=== PATIENT | male | born 1965 | race American Indian/Alaskan Native ===

== ENCOUNTER 2017-07-06 16:27 | Emergency (ER) | payer OTHER ==
[2017-07-06 17:19] LABS: Basophils % (Auto) 0.8 % (0.0-1.8); Eosinophils % (Auto) 0.5 % (0.0-4.3); Hematocrit 43.1 % (35.5-45.6); Hemoglobin 14.7 gm/dl (11.8-15.2); Mean Corpuscular HGB Conc 34 % (32-34); Mean Corpuscular Hemoglobin 32 pg (28-32); Mean Corpuscular Volume 92 fl (84-94); Platelet Count 215 K/mm3 (140-440); Red Blood Count 4.68 M/mm3 (3.65-5.03); Red Cell Distribution Width 14.8 % (13.2-15.2); White Blood Count 7.7 K/mm3 (4.5-11.0)
[2017-07-06 17:38] LABS: Anion Gap 22 mmol/L; BUN/Creatinine Ratio 8; Blood Urea Nitrogen 8 mg/dL (9-20); Calcium 9.1 mg/dL (8.4-10.2); Carbon Dioxide 23 mmol/L (22-30); Chloride 97.3 mmol/L (98-107); Glucose 106 mg/dL (75-100); Potassium 4.1 mmol/L (3.6-5.0); Sodium 138 mmol/L (137-145)
[2017-07-06 18:58] LABS: Urine Drugs of Abuse Note Disclamer
[2017-07-06 19:16] LABS: Bilirubin,Urine NEG (Negative); Blood,Urine NEG (Negative); Ketones,Urine NEG (Negative); Leukocyte Esterase,Urine NEG (Negative); Mucus,Urine FEW /HPF; Nitrite,Urine NEG (Negative); Urobilinogen,Urine < 2.0 mg/dL (<2.0)
--- NOTE | 2017-07-07 02:36 | Emergency Department Report ---
ED Psych HPI - General Chief Complaint: Psych Stated Complaint: DEPRESSION Time Seen by Provider: 07/07/17 00:22 Source: patient Mode of arrival: Ambulatory - Related Data Allergies Allergy/AdvReac Type Severity Reaction Status Date / Time No Known Allergies Allergy Unverified 07/06/17 16:45 ED Review of Systems ROS: Stated complaint: DEPRESSION Other details as noted in HPI ED Past Medical Hx - Past Medical History Previous Medical History?: Yes Hx Hypertension: Yes Hx Psychiatric Treatment: Yes (Bipolar) Additional medical history: hypercholesterolemia, ADD, depression - Surgical History Past Surgical History?: Yes Additional Surgical History: Right knee replacement, Left knee meniscus repair - Social History Smoking Status: Never Smoker Substance Use Type: Prescribed ED Physical Exam - General Limitations: No Limitations ED Course Vital Signs 07/06/17 16:45 Temperature 98.4 F Pulse Rate 100 H Respiratory 20 Rate Blood Pressure 161/86 O2 Sat by Pulse 97 Oximetry ED Medical Decision Making - Lab Data Result diagrams: 07/06/17 17:09 07/06/17 17:09 Critical care attestation.: If time is entered above; I have spent that time in minutes in the direct care of this critically ill patient, excluding procedure time. ED Disposition Condition: Stable Referrals: PRIMARY CARE, [Primary Care Provider] - 3-5 Days
--- NOTE | 2017-07-07 06:49 | Emergency Department Report ---
ED Psych HPI - General Chief Complaint: Psych Stated Complaint: DEPRESSION Time Seen by Provider: 07/07/17 00:22 Source: patient Mode of arrival: Ambulatory - History of Present Illness Initial Comments: pt states that he drank antifreeze to get back at his family to get attention. pt also states that he has been in a state of crista and has not slept in 3 days ; ;pt also relates several deaths in his family and states he has to be the speaker for all of the funerals as the oldest son. Pt states he feels no one cares about him. MD Complaint: suicidal ideation, feels depressed Associated Psychiatric Symptoms: depression Improves With: none Associated Symptoms: denies other symptoms Treatments Prior to Arrival: placed on mental he If Self Harm: intentional overdose, other (pt states he vomited right after drinking the antifreeze) - Related Data Allergies Allergy/AdvReac Type Severity Reaction Status Date / Time No Known Allergies Allergy Unverified 07/06/17 16:45 ED Review of Systems ROS: Stated complaint: DEPRESSION Other details as noted in HPI Constitutional: denies: chills, fever Eyes: denies: eye pain, eye discharge, vision change ENT: denies: ear pain, throat pain Respiratory: denies: cough, shortness of breath, wheezing Cardiovascular: denies: chest pain, palpitations Endocrine: no symptoms reported Musculoskeletal: denies: back pain, joint swelling, arthralgia Skin: denies: rash, lesions Neurological: as per HPI Psychiatric: depression, auditory hallucinations, suicidal thoughts. denies: anxiety, visual hallucinations Hematological/Lymphatic: denies: easy bleeding, easy bruising ED Past Medical Hx - Past Medical History Previous Medical History?: Yes Hx Hypertension: Yes Hx Psychiatric Treatment: Yes (Bipolar) Additional medical history: hypercholesterolemia, ADD, depression - Surgical History Past Surgical History?: Yes Additional Surgical History: Right knee replacement, Left knee meniscus repair - Social History Smoking Status: Never Smoker Substance Use Type: Prescribed ED Physical Exam - General Limitations: No Limitations General appearance: in no apparent distress - Eye Eye exam: Present: normal appearance, PERRL, EOMI - ENT ENT exam: Present: mucous membranes moist - Neck Neck exam: Present: normal inspection - Respiratory Respiratory exam: Present: normal lung sounds bilaterally. Absent: respiratory distress - Cardiovascular Cardiovascular Exam: Present: regular rate, normal rhythm. Absent: systolic murmur, diastolic murmur, rubs, gallop - Back Exam Back exam: Present: normal inspection - Neurological Exam Neurological exam: Present: alert, oriented X3, CN II-XII intact, normal gait. Absent: motor sensory deficit - Psychiatric Psychiatric exam: Present: normal mood, manic, suicidal ideation. Absent: normal affect (pressured speech), homicidal ideation - Skin Skin exam: Present: warm, dry, intact, normal color. Absent: rash ED Course Vital Signs 07/06/17 07/07/17 07/07/17 16:45 07:30 18:47 Temperature 98.4 F 98.4 F 98.2 F Pulse Rate 100 H 81 79 Respiratory 20 18 20 Rate Blood Pressure 161/86 Blood Pressure 133/76 149/93 [Right] O2 Sat by Pulse 97 97 99 Oximetry - Reevaluation(s) Reevaluation #1: 07/07/17 08:49 pt pending psych eval on 1013 ED Medical Decision Making - Lab Data Result diagrams: 07/06/17 17:09 07/07/17 14:30 - EKG Data 07/07/17 06:58 Pt is on a psych hold Critical care attestation.: If time is entered above; I have spent that time in minutes in the direct care of this critically ill patient, excluding procedure time. ED Disposition Clinical Impression: Suicide attempt by drug ingestion, Bipolar 1 disorder, manic, moderate, Medical clearance for psychiatric admission Disposition: [id number] PSY HOSP/PSY UNIT Is pt being admited?: No Does the pt Need Aspirin: No Condition: Stable Referrals: PRIMARY CARE, [Primary Care Provider] - 3-5 Days
--- NOTE | 2017-07-07 14:29 | Consultation ---
History of Present Illness - Reason for Consult Consult date: 07/07/17 Reason for consult: Mental Health Evaluation Requesting physician: TARAN REGALADO - Chief Complaint Chief complaint: "I want them to feel my pain" - History of Present Psychiatric Illness 52 y.o. AA male presenting to [facility] for drinking antifreeze to get the attention of his family. Today patient is hyper verbal and irritated during the assessment. He stated that he drank the antifreeze because he family doesn't respect him. He stated that he recorded himself drinking the antifreeze and text /emailed it to his family. Patient had to be redirected several time during the assessment because I could not ask a question. He stated being dx with Bipolar DO, but denies a current manic episode. He admit to being up for several days without sleep. He stated, "I have lots of energy now." He denies SI/HI's and AVH 's. He denies a poor appetite. He denies recreational drug use, but positive for cocaine and amphetamines. He denies a prescription for stimulants. His alcohol serum 0.10 on admission. Medications and Allergies Allergies Allergy/AdvReac Type Severity Reaction Status Date / Time No Known Allergies Allergy Unverified 07/06/17 16:45 Past psychiatric history - Past Medical History Past Medical History: hypertension Past Surgical History: No surgical history - past Psychiatric treatment and history Psych: Bipolar psychiatric treatment history: Patient stated that he was inpatient at [place] a couple years ago. Denies a fam psy hx. - Social History Social history: Lives alone Mental Status Exam - Vital signs Last Vital Signs Temp 98.4 F 07/07/17 07:30 Pulse 81 07/07/17 07:30 Resp 18 07/07/17 07:30 BP 133/76 07/07/17 07:30 Pulse Ox 97 07/07/17 07:30 - Exam Narrative exam: MSE: Appearance: irritated Behavior: regular eye contact Speech: hyper verbal Mood: euphoric Affect: congruent to mood Thought Process: circumstantial Thought Content: denies SI/HI's and AVH Motor Activity: ambulatory Cognition: A/Ox 3 Insight: poor Judgment: poor Results Result Diagrams: 07/06/17 17:09 07/06/17 17:09 Abnormal lab results 07/06/17 07/06/1707/06/17 Range/Units 17:09 17:09 17:09 Lymph % (Auto) 36.3 H (13.4-35.0) % Brewster % (Auto) 14.5 H (0.0-7.3) % Brewster # 1.1 H (0.0-0.8) K/mm3 Chloride 97.3 L (98-107) mmol/L BUN 8 L (9-20) mg/dL Glucose 106 H (75-100) mg/dL Plasma/Serum Alcohol 0.10 H (0-0.07) gm% All other labs normal. Assessment and Plan Assessment and plan: Impression: Bipolar DO. Substance Use DO (cocaine/amphetamines). Alcohol Use DO. Today patient is hyper verbal and irritated during the assessment. DDx: R/O MDD, R/O Schizophrenia, Substance Induced Mood DO Recommendation/Plan: Continue 1013 with placement to [facility] today.
[2017-07-07 15:33] LABS: Anion Gap 20 mmol/L; BUN/Creatinine Ratio 12; Blood Urea Nitrogen 11 mg/dL (9-20); Calcium 8.8 mg/dL (8.4-10.2); Carbon Dioxide 24 mmol/L (22-30); Chloride 101.7 mmol/L (98-107); Glucose 91 mg/dL (75-100); Potassium 4.5 mmol/L (3.6-5.0); Sodium 141 mmol/L (137-145)
[2017-07-07 18:48] VITALS: BP 149/93
== END 2017-07-07 18:48 ==
LOC: ED 16:27 → EEVIPCON 16:27 → ED 07-07 18:48
DX: T14.91XA Suicide attempt, initial encounter (principal); R45.851 Suicidal ideations; F31.9 Bipolar disorder, unspecified; I10 Essential (primary) hypertension; Y92.89 Other specified places as the place of occurrence of the external cause
CPT/HCPCS: 36415; 80048; 80307; 81001; 85025; 99285; G0480; 80320